=== PATIENT | female | born 1995 | race Caucasian/White ===

== ENCOUNTER 2016-09-24 22:03 | Emergency (ER) | payer OTHER ==
[~2016-09-24] VITALS: Wt 91.0 kg
[2016-09-24] MEDS ORDERED: ONDANSETRON (ODT) 4 MG TAB ODT STA (23:58)
[2016-09-25] MEDS ORDERED: LIDOCAINE/MYLANTA 40 ML BTL PO ONE
[2016-09-25] MEDS ORDERED: ONDA4TAB14 PO (00:21)
[2016-09-25] MEDS ORDERED: RANI150T9 PO (00:21)
[2016-09-25 01:14] VITALS: BP 139/91; PULSE 115; RESP 16
--- NOTE | 2016-09-25 02:16 | ERD ---
ER Documentation Chief Complaint Date/Time DATE: 09/25/16 TIME: 02:13 Chief Complaint AP and vomiting since yesterday HPI This patient is a 21-year-old female with no significant medical history presenting to the emergency department for midepigastric pain and 5 episodes of vomiting which began today. The patient denies blood in the vomit. Symptoms are intermittent. The midepigastric pain improves after vomiting episodes. The patient is taken no medication for relief of symptoms. The patient denies radiation. The patient has had sick contacts. The midepigastric pain is rated at an 8 out of 10 when it does come, however it is currently resolved. The patient is up-to-date on all of her childhood vaccines. The patient denies fevers, chills, diarrhea, or other symptoms at this time. ROS All systems reviewed and are negative except as per history of present illness. Medications Home Meds Active Scripts Ranitidine Hcl* (Zantac*) 150 Mg Tablet, 150 MG PO BID Y for EPIGASTRIC PAIN, # 30 TAB Prov:KALE RAINEY PA-C 09/25/16 Ondansetron (Ondansetron Odt) 4 Mg Tab.rapdis, 4 MG PO Q6H Y for NAUSEA AND/OR VOMITING, #10 TAB Prov:KALE RAINEY PA-C 09/25/16 Allergies Allergies: Coded Allergies: No Known Allergy (Unverified , 09/24/16) PMhx/Soc Medical and Surgical Hx: pt denies Medical Hx, pt denies Surgical Hx Hx Alcohol Use: No Hx Substance Use: No Hx Tobacco Use: No FmHx Noncontributory for chief complaint Physical Exam Vitals Vital Signs Date Time Temp Pulse Resp B/P Pulse Ox O2 Delivery O2 Flow Rate FiO2 09/25/16 01:14 115 16 139/91 98 Room Air 09/24/16 22:11 98.6 114 20 157/82 98 Physical Exam Const: The patient is resting comfortably in no acute distress. Head: Atraumatic Eyes: Normal Conjunctiva ENT: Normal External Ears, Nose and Mouth. Neck: Full range of motion..~ No meningismus. Resp: Clear to auscultation bilaterally Cardio: Regular rate and rhythm, no murmurs Abd: Soft, non tender, non distended. Normal bowel sounds. The patient is able to jump up and down multiple times without eliciting abdominal pain. Skin: No petechiae or rashes Back: No midline or flank tenderness Ext: No cyanosis, or edema Neur: Awake and alert Psych: Normal Mood and Affect Results 24 hrs Current Medications Medications (Trade) Dose Ordered Sig/[place] Route PRN Reason Start Time Stop Time Status Last Admin Dose Admin Ondansetron HCl (Zofran Odt) 4 mg ONCE STAT ODT 09/24/16 23:58 09/25/16 00:07 DC 09/25/16 00:28 Miscellaneous Medication (Gi Cocktail (2)) 40 ml ONCE ONCE PO 09/25/16 00:00 09/25/16 00:07 DC 09/25/16 00:28 Procedures/MDM 21-year-old female presents to the emergency department secondary to complaints of midepigastric pain and vomiting. Physical examination the patient's vitals are within normal limits besides her being slightly tachycardic at 114 bpm. I believe this is secondary to pain. The patient's blood pressure was also slightly elevated, but not significant. Patient's blood pressure was elevated ( >120/80) but appears stable without evidence of hypertension emergency or urgency. The patient was counseled about the risks of hypertension and urged to pursue outpatient monitoring and therapy within a week with their primary care physician. Clinical examination of the patient's abdomen was benign. The patient was able to jump up and down multiple times without eliciting abdominal pain. The patient was medicated in the department with Zofran, GI cocktail, and she was feeling improved on reevaluation. The patient tolerated a p.o. fluid challenge in the department. The patient is stable for outpatient management with a prescription for ranitidine and ondansetron. The patient most likely has gastroesophageal reflux disease which is causing epigastric pain. The patient is stable for outpatient management with a prescription for ranitidine and ondansetron. The patient understands the discharge plan and diagnosis. Strict ER return precautions were discussed. The patient is to have close follow-up with the primary care physician in the next 1-3 days. I have low suspicion for acute abdomen, septicemia, or other emergent conditions at this time. Departure Diagnosis: Primary Impression: Epigastric pain Additional Impressions: GERD (gastroesophageal reflux disease) Nausea and vomiting Condition: Fair Patient Instructions: Nausea and Vomiting-Adult, Gerd (Adult) Referrals: COMM[facility]ITY CLIN[facility] YOU HAVE RECEIVED A MEDICAL SCREENING EXAM AND THE RESULTS INDICATE THAT YOU DO NOT HAVE A CONDITION THAT REQUIRES URGENT TREATMENT IN THE EMERGENCY DEPARTMENT. FURTHER EVALUATION AND TREATMENT OF YOUR CONDITION CAN WAIT UNTIL YOU ARE SEEN IN YOUR DOCTORS OFFICE WITHIN THE NEXT 1-2 DAYS. IT IS YOUR RESPONSIBILITY TO MAKE AN APPOINTMENT FOR FOLOW-UP CARE. IF YOU HAVE A PRIMARY DOCTOR --you should call your primary doctor and schedule an appointment IF YOU DO NOT HAVE A PRIMARY DOCTOR YOU CAN CALL OUR PHYSICIAN REFERRAL HOTLINE AT IF YOU CAN NOT AFFORD TO SEE A PHYSICIAN YOU CAN CHOSE FROM THE FOLLOWING [facility] [id number] [facility]. [facility] [address] [facility] [facility] [address] [facility] [facility] [address] [facility]. [facility] [address] [facility] [facility] [address] [place] Additional Instructions: Avoid spicy foods. Elevate the head of the bed 30 after eating. Follow up with your PCP within the next 1-3 days for a more thorough evaluation and a possible referral to a specialist. Return the the emergency department immediately if symptoms worsen or change. If you have any questions regarding medications, ask your pharmacist or us before you leave. If any adverse reactions, occur while taking your medications, discontinue the treatment and return to the emergency department immediately. If any new or worsening symptoms, uncontrolled fevers, or other unexplained symptoms occur, return to the emergency department immediately. Take your medications as directed, and complete the entire course of treatment. KALE RAINEY PA-C September 25, 2016 02:16
== END 2016-09-25 01:15 | disposition home or self-care (01) ==
LOC: FTE 22:03
DX: R10.13 Epigastric pain (principal); K21.9 Gastro-esophageal reflux disease without esophagitis; R11.2 Nausea with vomiting, unspecified; R11.10 Vomiting, unspecified
CPT/HCPCS: Z7610 ×2; 99283